=== PATIENT | male | born 1985 | race Caucasian/White ===

== ENCOUNTER 2019-01-21 13:16 | Emergency (ER) | payer OTHER, BC ==
[~2019-01-21] VITALS: Ht 177.8 cm; Wt 63.5 kg
[~2019-01-21 13:16] MED LIST: FLEXERIL5 MG PO; MOTRIN800 MG PO
[2019-01-21 13:37] LABS: BILIRUBIN NEGATIVE (NEGATIVE); BLOOD TRACE-INTACT (NEGATIVE); CLARITY CLEAR (CLEAR); COLOR YELLOW (YELLOW); GLUCOSE NEGATIVE (NEGATIVE); KETONE NEGATIVE (NEGATIVE); LEUKO ESTERASE NEGATIVE (NEGATIVE); NITRITE NEGATIVE (NEGATIVE); PH 7.5 (5.0-9.0); SPECIFIC GRAVITY 1.015 (1.005-1.030); UROBILINOGEN 0.2 E.U./dl (0.2-1.0)
[2019-01-21 13:49] LABS: BACTERIA TRACE; EPITHELIAL CELLS 0-2; RBC 0-2 rbc/hpf (0-2)
[2019-01-23 09:12] LABS: GONOCOCCUS BY NAA Negative (Negative)
[2019-02-10] MEDS ORDERED: MEDROL DOSEPAK4 MG PO (09:15)
[2019-02-10] MEDS ORDERED: DIPHENHYDRAMINE50 M1 PO (09:15)
== END 2019-01-21 14:40 | disposition home or self-care (01) ==
LOC: ED 13:16
PROVIDERS: Nurse Practitioner Family
DX: Z11.3 Encounter for screening for infections with a predominantly sexual mode of transmission (principal); F17.200 Nicotine dependence, unspecified, uncomplicated

== ENCOUNTER 2019-02-16 07:08 | Emergency (ER) | payer OTHER, BC ==
[~2019-02-16] VITALS: Ht 177.8 cm; Wt 77.1 kg
[~2019-02-16 07:08] MED LIST changes: +DIPHENHYDRAMINE50 M1 PO; +MEDROL DOSEPAK4 MG PO
[2019-02-16] MEDS ORDERED: ATARAX,VISTARIL50 MG PO (07:21)
== END 2019-02-16 07:30 | disposition home or self-care (01) ==
LOC: ED 07:08
DX: L30.9 Dermatitis, unspecified (principal)

== ENCOUNTER 2023-07-02 13:38 | Emergency (ER) | payer OTHER ==
[~2023-07-02] VITALS: Ht 172.7 cm; Wt 95.3 kg
[~2023-07-02 13:38] MED LIST changes: +ATARAX,VISTARIL50 MG PO
== END 2023-07-02 15:04 | disposition home or self-care (01) ==
LOC: ED 13:38
DX: S63.91XA Sprain of unspecified part of right wrist and hand, initial encounter (principal); W19.XXXA Unspecified fall, initial encounter; Y93.89 Activity, other specified; Y92.89 Other specified places as the place of occurrence of the external cause; Y99.8 Other external cause status

== ENCOUNTER 2025-08-25 17:17 | Emergency (ER) | payer BC ==
[~2025-08-25] VITALS: Ht 177.8 cm; Wt 108.9 kg
[2025-08-25 18:07] LABS: BASO # 0.0 10*3/uL (0.0-0.1); BASO % 0.2 % (0.0-1.0); EOS # 0.1 10*3/uL (0.0-0.4); EOS % 0.9 % (1.0-4.0); MEAN CELL VOLUME 94.6 fl (80.0-94.0); MEAN CORPUSCULAR HGB 32.7 pg (27.0-31.0); MEAN PLATELET VOLUME 10.0 fl (9.6-12.3); MONO # 1.2 10*3/uL (0.1-1.0); MONO % 9.9 % (3.0-9.0); NEUT # 8.9 10*3/uL (2.3-7.9); NEUT % 73.8 % (47.0-73.0); NUCLEATED RED BLOOD CELL 0.0 % (0.0-0.0); NUCLEATED RED BLOOD CELL 0.0 10*3/uL (0.0-0.0); PLATELET COUNT AUTOMATED 205 10*3/uL (130-400); RED CELL DISTRI WIDTH 11.9 % (0-14.5)
[2025-08-25] MEDS ORDERED: IOHEXOL 300 MG/ML 100 ML VIAL IV ONE (18:10)
[2025-08-25 18:30] LABS: BUN 16 mg/dl (9-23); SGPT/ALT 27 U/L (5-49)
[2025-08-25] MEDS ORDERED: CIPRO500 MG PO (19:38)
[2025-08-25] MEDS ORDERED: METRONIDAZOLE500 M1 PO (19:38)
[2025-08-25] MEDS ORDERED: OMEPRAZOLE40 MG PO (19:38)
[2025-08-25] MEDS ORDERED: Ciprofloxacin Hydrochloride 500 MG TAB PO ONE (19:40)
[2025-08-25] MEDS ORDERED: metroNIDAZOLE 500 MG TAB PO ONE (19:40)
== END 2025-08-25 19:41 | disposition home or self-care (01) ==
LOC: ED 17:17
PROVIDERS: Nurse Practitioner Family
DX: K52.9 Noninfective gastroenteritis and colitis, unspecified (principal); K62.5 Hemorrhage of anus and rectum